=== PATIENT | male | born 1960 | race African-American/Black ===

== ENCOUNTER 2019-09-04 07:12 | Emergency (ER) | payer OTHER ==
[~2019-09-04] VITALS: Ht 185.4 cm; Wt 85.0 kg
[2019-09-04] MEDS ORDERED: ACETAMINOPHEN 325MG TABLET ONE (08:18)
[2019-09-04] MEDS ORDERED: ALBUTEROL (0.083%) 2.5MG/3ML NEB HHN STA (08:40)
[2019-09-04] MEDS ORDERED: IPRATROPIUM BROMIDE (0.02%) 0.5MG/2.5ML NEB HHN STA (08:40)
[2019-09-04] MEDS ORDERED: IBUPROFEN 200MG TABLET ONE (09:10)
[2019-09-04] MEDS ORDERED: ACETAMINOPHEN 325MG TABLET PO ONE ×2 (09:15→11:30)
[2019-09-04] MEDS ORDERED: IBUPROFEN 600MG TABLET PO ONE (09:30)
[2019-09-04 11:30] VITALS: BP 149/92
== END 2019-09-04 11:50 | disposition home or self-care (01) ==
LOC: ER 07:12
DX: J06.9 Acute upper respiratory infection, unspecified (principal); I10 Essential (primary) hypertension; Z88.0 Allergy status to penicillin
CPT/HCPCS: 71045; 87804; 94640; 99284